=== PATIENT | male | born 1990 | race Native Hawaiian/Other Pacific Islander ===

== ENCOUNTER → 2020-11-13 | Outpatient (CLI) | payer OTHER ==
[~2020-11-13] MED LIST: ISOVUE-300 61% 50ML VIAL As Ordered ONE; PROHANCE 279.3MG/ML 5ML VIAL As Ordered ONE
--- NOTE | 2020-11-13 09:51 | REP ---
INDICATION: LT SHOULDER PAIN ? LABRAL TEAR. COMPARISON: None. TECHNIQUE: Coronal oblique T1, T2 fat sat, sagittal oblique T2 fat sat, axial T2 fat sat, gradient echo. Post arthrogram T1 fat sat and T2 fat sat in multiple planes. FINDINGS: Rotator cuff: There is a partial full-thickness tear of the anterior leading edge of the supraspinatus tendon. There is tendinopathy/tendinitis of the remaining portions of supraspinatus and infraspinatus tendons. Acromioclavicular joint: There are very mild hypertrophic changes at the acromioclavicular joint. Acromion: Type 2, downward sloping. Biceps Tendon: In bicipital groove, no tenosynovitis. Hill Sach's deformity: None. Deltoid muscle: No abnormal signal. Biceps labral complex: There is fraying of the biceps labral complex. Labrum: There is a SLAP tear. Cartilage: No defects. Bone marrow: No abnormal signal. Joint fluid: There is a small joint effusion, with mild fluid present in the subacromial/subdeltoid bursae. IMPRESSION: Partial full-thickness tear anterior leading edge of supraspinatus tendon. Very mild hypertrophic changes at the acromioclavicular joint with a type 2 downward sloping acromion. There is fraying of the biceps labral complex and there are findings of a SLAP tear. Small joint effusion with mild fluid in the subacromial/subdeltoid bursae. <Electronically signed by Bao Alarcon > 11/13/20 [id number]
--- NOTE | 2020-11-13 18:48 | REP ---
INDICATION: LT SHOULDER PAIN? LABRAL TEAR COMPARISON: None. TECHNIQUE: The procedure was performed under the direct supervision of Dr. Alarcon. The benefits and risks including but not limited to pain, infection, bleeding and anaphylaxis were explained to the patient and informed consent was obtained. The left glenohumeral joint space was localized using fluoroscopic guidance. The skin was prepped and draped in a sterile fashion. 1% lidocaine was used as a local anesthetic. Using fluoroscopic guidance a 22 gauge spinal needle was inserted and advanced into the joint. 0.5 ml of Isovue-300 was injected to verify placement. 11 ml of a solution containing 20 ml of sterile saline and 0.15 ml of ProHance was injected into the joint. The needle was removed and the patient was taken to MRI for postprocedural imaging. The patient tolerated the procedure well and there were no immediate complications. Less than 6 seconds of fluoro time was utilized for this procedure. FINDINGS: None IMPRESSION: Fluoro guidance for left shoulder MRI arthrogram injection. <Electronically signed by Guanaco Paris > 11/13/20 [id number] <Electronically signed by Bao Alarcon > 11/13/20 [id number]
== END ==
LOC: M RADPRO 06:35
PROVIDERS: ATTEND Physician Assistant Surgical
DX: M75.82 Other shoulder lesions, left shoulder (principal); M25.412 Effusion, left shoulder; M25.512 Pain in left shoulder
CPT/HCPCS: 23350; 73223; 77002; A9576; Q9967

== ENCOUNTER → 2021-11-29 | Outpatient (REF) | payer OTHER ==
[2021-11-29 12:01] LABS: HEMOGLOBIN A1c 5.6 %
[2021-11-29 12:08] LABS: CHOLESTEROL RISK RATIO 4.137 (<5)
== END ==
LOC: M LAB 09:00 → EDSTATUS 12-10 14:50
PROVIDERS: ATTEND Family Medicine
DX: E78.5 Hyperlipidemia, unspecified (principal); R79.89 Other specified abnormal findings of blood chemistry